=== PATIENT | male | born 2005 | race Caucasian/White ===

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

== ENCOUNTER 2023-01-01 07:41 | Outpatient (CLI) | payer MEDICAID, SELFPAY ==
--- NOTE | 2023-01-01 08:00 | MR_ITS ---
WS: [id number] MRI RIGHT ANKLE WITHOUT CONTRAST. COMPARISON: RIGHT ankle radiograph 12/26/2022 Multiplanar, multisequence imaging is performed without contrast. History: Painful mass lateral malleolus. There is a very subtle area of soft tissue thickening and a masslike configuration over the lateral m alleolus which corresponds to the palpable abnormality. This area of soft tissue thickening follows f at on all sequences. This is most consistent with a lipoma extending over a length of 1.8 cm. Transve rse diameter of 0.5 and anterior posterior by 1.3 cm. Normal marrow signal. No fractures. No osteochondral lesions. The joint space is well-maintained. Nor mal Achilles tendon. Normal peroneal tendons. Flexor and extensor tendons are normal. IMPRESSION: 1. Soft tissue mass following fat on all sequences over the lateral malleolus. Corresponds to the pal pable abnormality. Most consistent with a lipoma measuring 0.5 x 1.3 x 1.8 cm. 2. No marrow abnormality.
== END 2023-01-01 07:42 | disposition home or self-care (01) ==
LOC: RAD 07:41
PROVIDERS: Family Provider Family Medicine; PCP Family Medicine; Visit Provider Podiatrist Foot & Ankle Surgery
DX: M79.89 Other specified soft tissue disorders (principal); R22.41 Localized swelling, mass and lump, right lower limb; M25.571 Pain in right ankle and joints of right foot
CPT/HCPCS: 73721

== ENCOUNTER → 2023-01-30 13:54 | Outpatient (BNVA) | payer MEDICAID, SELFPAY | PROVIDERS: Family Provider Family Medicine; PCP Family Medicine; Visit Provider Podiatrist Foot & Ankle Surgery | DX: M79.89 Other specified soft tissue disorders (principal) | CPT/HCPCS: 99213 ==

== ENCOUNTER 2023-10-16 18:03 | Inpatient (IN) | payer SELFPAY ==
[2023-10-16 18:08] VITALS: BP 127/82; PULSE 123; RESP 18; TEMP 36.6; O2SAT 96
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
[2023-10-16 19:14] LABS: Basophils # 0.1 10^3/uL (0.0-0.1); Basophils % 0.7 %; Eosinophils % 0.2 %; Hematocrit 43.2 % (37-53); Lymphocytes # 1.6 10^3/uL (1.5-6.5); Lymphocytes % 13.6 %; Mean Corpuscular HGB Conc 36.3 g/dL (30-55); Mean Corpuscular Hemoglobin 31.5 pg (27-33); Mean Corpuscular Volume 86.6 fl (82-101); Monocytes # 0.7 10^3/uL (0.2-0.9); Monocytes % 5.7 %; Neutrophils # 9.28 10^3/uL (1.8-8.0); Neutrophils % 79.5 %; Nucleated Red Blood Cells % 0 %; Platelet Count 276 10^3/cmm (157-399); Red Blood Count 4.99 10^6/uL (3.85-5.65); Red Cell Distribution Width 11.9 % (12.1-15.1); White Blood Count 11.66 10^3/uL (4.5-13.0)
[2023-10-16 19:25] LABS: Amphetamines Screen Urine Positive (Negative); Barbiturates Screen Urine Negative (Negative); Benzodiazepines Screen Urine Positive (Negative); Cocaine Screen Urine Negative (Negative); Opiate Screen Urine Negative (Negative); PCP Screen Urine Negative (Negative); THC Screen Urine Negative (Negative)
[2023-10-16 19:32] LABS: Alanine Aminotransferase 16 U/L (0-41); Alkaline Phosphatase 89 U/L (40-130); Anion Gap 17.4 (5-19); Aspartate Amino Transferase 23 U/L (0-40); Blood Urea Nitrogen 17 mg/dL (6-20); Calcium 9.9 mg/dL (8.5-10.5); Carbon Dioxide 24 mmol/L (22-29); Chloride 102 mmol/L (98-107); Globulin 2.6 g/dL (1.3-4.6); Glomerular Filtration Rate 124.5 mL/min (90-130); Glucose 107 mg/dL (65-115); Osmolality Calculated 292 mOsm/kg (285-295); Potassium 3.4 mmol/L (3.5-5.1); Sodium 140 mmol/L (136-145); Total Bilirubin 2.5 mg/dL (0.15-1.2); Total Protein 7.6 g/dL (6.6-8.7)
[2023-10-16 19:33] LABS: Acetaminophen < 5.0 ug/mL (10-30); Alcohol Level < 10 mg/dL (0-10); Salicylate < 0.3 mg/dL (3-10)
[2023-10-16 20:20] VITALS: BP 118/60; PULSE 105; RESP 15; O2SAT 97
--- NOTE | 2023-10-16 20:38 | PC.NURSE ---
report called to Sridhar at 2037. NPU.
[2023-10-16 21:15] VITALS: BP 125/83; PULSE 102; RESP 18; TEMP 36.3; O2SAT 95
[2023-10-16 21:29] VITALS: BP 125/83; PULSE 102; RESP 18; TEMP 36.3
[2023-10-16] MEDS: trazodone 100 mg Tablet PO (23:14)
[2023-10-17] MEDS: acetaminophen 325 mg Tablet 650 MG PO (04:09)
[2023-10-17 06:00] VITALS: BP 126/81; PULSE 83; RESP 18; O2SAT 100
[2023-10-17] MEDS: LORazepam 0.5 mg Tablet PO ×2 (09:35→17:37)
[2023-10-17] MEDS: [UNRECOGNIZED DRUG - OTHER] PO (10:37)
[2023-10-17] MEDS: AMPHET PO ×2 (10:37→13:30)
[2023-10-17] MEDS: [UNRECOGNIZED DRUG - OTHER] PO (13:30)
[2023-10-17 14:00] VITALS: BP 115/67; PULSE 93; RESP 16; TEMP 37; O2SAT 98
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
[2023-10-17 19:15] VITALS: BP 122/84; PULSE 95; RESP 18; TEMP 36.3; O2SAT 100
[2023-10-17] MEDS: trazodone 100 mg Tablet PO (20:01)
[2023-10-17] MEDS: ARIPiprazole 10 mg Tablet 20 MG PO (20:01)
[2023-10-17] MEDS: ibuprofen 600 mg Tablet PO (23:14)
[2023-10-18 06:00] VITALS: BP 127/78; PULSE 67; RESP 18; TEMP 36.6; O2SAT 100
[2023-10-18] MEDS: LORazepam 0.5 mg Tablet PO ×2 (08:13→20:14)
[2023-10-18] MEDS: [UNRECOGNIZED DRUG - OTHER] PO (09:29)
[2023-10-18] MEDS: AMPHET PO ×2 (09:29→13:17)
--- NOTE | 2023-10-18 13:02 | PC.NURSE ---
Spoke with Mom to update her with med change for sleep at Bedtime. Dr. Feliz ordered 50mg Seroquel at Bedtime along with the 100mg of trazodone.
[2023-10-18] MEDS: [UNRECOGNIZED DRUG - OTHER] PO (13:17)
[2023-10-18 13:20] VITALS: BP 137/81; PULSE 109; RESP 16; TEMP 37.3; O2SAT 98
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
[2023-10-18] MEDS: ARIPiprazole 10 mg Tablet 20 MG PO (20:14)
[2023-10-18] MEDS: quetiapine 25 mg Tablet 50 MG PO (20:15)
[2023-10-18] MEDS: trazodone 100 mg Tablet PO (20:15)
[2023-10-18 20:45] VITALS: BP 115/82; PULSE 99; RESP 16; TEMP 37.4; O2SAT 98
[2023-10-19 06:00] VITALS: BP 114/76; PULSE 100; RESP 18; TEMP 36.6; O2SAT 98
[2023-10-19] MEDS: LORazepam 0.5 mg Tablet PO ×2 (08:07→20:26)
--- NOTE | 2023-10-19 08:14 | PC.NURSE ---
Patient states that he is feeling happy today. Patient denies SI, HI, AVH, depression, and anxiety. Patient voices nervousness at this time. Denies any needs.
[2023-10-19] MEDS: [UNRECOGNIZED DRUG - OTHER] PO (10:11)
[2023-10-19] MEDS: AMPHET PO ×2 (10:11→13:19)
[2023-10-19] MEDS: [UNRECOGNIZED DRUG - OTHER] PO (13:19)
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
[2023-10-19 14:00] VITALS: BP 126/81; PULSE 162; RESP 16; TEMP 36.6; O2SAT 96
--- NOTE | 2023-10-19 18:27 | PC.NURSE ---
Patient's room searched for contraband by staff. Nothing uncovered. patient cooperative with search
[2023-10-19] MEDS: ARIPiprazole 10 mg Tablet 20 MG PO (20:25)
[2023-10-19] MEDS: trazodone 100 mg Tablet PO (20:25)
[2023-10-19] MEDS: quetiapine 25 mg Tablet 50 MG PO (20:26)
[2023-10-19 20:56] VITALS: BP 125/87; PULSE 109; RESP 18; TEMP 36.9; O2SAT 100
[2023-10-20 06:00] VITALS: BP 109/67; PULSE 120; RESP 17; TEMP 36.7; O2SAT 98
[2023-10-20] MEDS: LORazepam 0.5 mg Tablet PO ×2 (08:18→20:35)
[2023-10-20] MEDS: [UNRECOGNIZED DRUG - OTHER] PO (08:19)
[2023-10-20] MEDS: AMPHET PO ×2 (08:19→13:03)
[2023-10-20] MEDS: [UNRECOGNIZED DRUG - OTHER] PO (13:03)
[2023-10-20 13:46] VITALS: BP 118/69; PULSE 105; RESP 16; TEMP 36.4; O2SAT 99
[2023-10-20] MEDS: hyDROXYzine 25 mg Capsule 50 MG PO (16:39)
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
[2023-10-20] MEDS: trazodone 100 mg Tablet PO (20:35)
[2023-10-20] MEDS: ARIPiprazole 10 mg Tablet 20 MG PO (20:35)
[2023-10-20] MEDS: quetiapine 25 mg Tablet 50 MG PO (20:35)
[2023-10-20 20:36] VITALS: BP 114/71; PULSE 96; RESP 18; TEMP 36.8; O2SAT 97
[2023-10-21 06:00] VITALS: BP 108/68; PULSE 109; RESP 18; TEMP 36.3; O2SAT 99
[2023-10-21] MEDS: LORazepam 0.5 mg Tablet PO ×2 (08:36→20:09)
[2023-10-21] MEDS: diphenhydrAMINE cream 30 gm 1 APPLIC TOPICAL (08:36)
[2023-10-21] MEDS: AMPHET PO ×2 (09:07→12:51)
[2023-10-21] MEDS: [UNRECOGNIZED DRUG - OTHER] PO (09:07)
[2023-10-21] MEDS: [UNRECOGNIZED DRUG - OTHER] PO (12:51)
[2023-10-21 13:09] VITALS: BP 113/77; PULSE 110; RESP 16; TEMP 36.6; O2SAT 98
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
[2023-10-21] MEDS: OLANZapine 5 mg ODT PO (15:42)
[2023-10-21] MEDS: ARIPiprazole 10 mg Tablet 20 MG PO (20:08)
[2023-10-21] MEDS: quetiapine 25 mg Tablet 50 MG PO (20:09)
[2023-10-21] MEDS: trazodone 100 mg Tablet PO (20:09)
[2023-10-21 20:28] VITALS: BP 113/72; PULSE 110; RESP 18; TEMP 37.2; O2SAT 97
[2023-10-22 06:00] VITALS: BP 99/66; PULSE 106; RESP 17; TEMP 36.9; O2SAT 96
[2023-10-22] MEDS: LORazepam 0.5 mg Tablet PO (08:52)
[2023-10-22] MEDS: OLANZapine 5 mg ODT PO (12:44)
[2023-10-22] MEDS: nicotine 2 mg Gum BUCCAL (13:00)
[2023-10-22 13:42] VITALS: BP 126/81; PULSE 118; RESP 16; TEMP 36.6; O2SAT 98
--- NOTE | 2023-10-22 13:59 | W.PM.NPUDCS ---
Diagnoses at Discharge Discharge Diagnosis (1) Outbursts of anger: Status: Acute (2) Moderate intellectual disability: Status: Acute (3) ADHD: Status: Acute Reason for Visit Reason for Visit: MHE Involuntary Hold Information 96 Hour Hold: 96 Hour Involuntary Admission: No Mental Status Exam MSE Comments: This is a short underweight white male in hospital scrubs with limited grooming and adequate eye contact. Abnormal facies noted. No abnormal movements except for mild psychomotor retardation. Cooperative with exam in no acute distress. Speech was limited and normal rate and volume and childlike. Mood described as okay, affect was congruent and childlike. Thought process appeared linear. Thought content: Patient denied suicidal or homicidal ideation, he did not report delusions and none were noted, he did not report auditory or visual hallucinations. His attention and concentration were limited and memory was unreliable but none were formally tested. He is alert and oriented to person and place. He was unclear of the month or season. Insight and judgment are impaired impulse impulse impaired. Intellectual ability is impaired. Discharge Data Studies Completed and Pending: Laboratory Results WBC 11.66 10^3/uL (4. 5-13.0) 10/16/23 18:57 RBC 4.99 10^6/uL (3.8 5-5.65) 10/16/23 18:57 Hgb 15.70 g/dL (13.2- 15.6) H 10/16/23 18:57 Hct 43.2 % (37-53) 10/16/23 18:57 MCV 86.6 fl (82-101) 10/16/23 18:57 MCH 31.5 pg (27-33) 10/16/23 18:57 MCHC 36.3 g/dL (30-55) 10/16/23 18:57 RDW 11.9 % (12.1-15.1 ) L 10/16/23 18:57 Plt Count 276 10^3/cmm (157 -399) 10/16/23 18:57 MPV 11.0 fL (7.4-10.4 ) H 10/16/23 18:57 Neut % (Auto) 79.5 % 10/16/23 18:57 Lymph % (Auto) 13.6 % 10/16/23 18:57 [place] % (Auto) 5.7 % 10/16/23 18:57 Eos % (Auto) 0.2 % 10/16/23 18:57 Baso % (Auto) 0.7 % 10/16/23 18:57 Neut # (Auto) 9.28 10^3/uL (1.8 -8.0) H 10/16/23 18:57 Lymph # (Auto) 1.6 10^3/uL (1.5- 6.5) 10/16/23 18:57 [place] # (Auto) 0.7 10^3/uL (0.2- 0.9) 10/16/23 18:57 Eos # (Auto) 0.0 10^3/uL (0.0- 0.8) 10/16/23 18:57 Baso # (Auto) 0.1 10^3/uL (0.0- 0.1) 10/16/23 18:57 Nucleated RBC % (a uto) 0 % 10/16/23 18:57 Nucleated RBCs # 0.0 /100WBC 10/16/23 18:57 Sodium 140 mmol/L (136-1 45) 10/16/23 18:57 Potassium 3.4 mmol/L (3.5-5 .1) L 10/16/23 18:57 Chloride 102 mmol/L (98-10 7) 10/16/23 18:57 Carbon Dioxide 24 mmol/L (22-29) 10/16/23 18:57 Anion Gap 17.4 (5-19) 10/16/23 18:57 BUN 17 mg/dL (6-20) 10/16/23 18:57 Creatinine 0.8 mg/dL (0.7-1. 2) 10/16/23 18:57 GFR Calculation 124.5 mL/min (90- 130) 10/16/23 18:57 Glucose 107 mg/dL (65-115 ) 10/16/23 18:57 Calculated Osmolal ity 292 mOsm/kg (285- 295) 10/16/23 18:57 Calcium 9.9 mg/dL (8.5-10 .5) 10/16/23 18:57 Total Bilirubin 2.5 mg/dL (0.15-1 .2) H 10/16/23 18:57 AST 23 U/L (0-40) 10/16/23 18:57 ALT 16 U/L (0-41) 10/16/23 18:57 Alkaline Phosphata se 89 U/L (40-130) 10/16/23 18:57 Total Protein 7.6 g/dL (6.6-8.7 ) 10/16/23 18:57 Albumin 5.0 g/dL (3.5-5.2 ) 10/16/23 18:57 Globulin 2.6 g/dL (1.3-4.6 ) 10/16/23 18:57 Salicylates < 0.3 mg/dL (3-10 ) L 10/16/23 18:57 Urine Opiates Scre en Negative ng/mL (N egative) 10/16/23 18:09 Acetaminophen < 5.0 ug/mL (10-3 0) L 10/16/23 18:57 Ur Barbiturates Sc reen Negative ng/mL (N egative) 10/16/23 18:09 Ur Phencyclidine S crn Negative ng/mL (N egative) 10/16/23 18:09 Ur Amphetamines Sc reen Positive ng/mL (N egative) H 10/16/23 18:09 U Benzodiazepines Scrn Positive ng/mL (N egative) H 10/16/23 18:09 Urine Cocaine Scre en Negative ng/mL (N egative) 10/16/23 18:09 U Marijuana (THC) Screen Negative ng/mL (N egative) 10/16/23 18:09 Ethyl Alcohol < 10 mg/dL (0-10) 10/16/23 18:57 Vitals: Last Vital Signs Temp 98 F 10/22/23 13:42 Pulse 118 H 10/22/23 13:42 Resp 16 10/22/23 13:42 BP 126/81 10/22/23 13:42 Pulse Ox 98 10/22/23 13:42 O2 Del Method Room Air 10/22/23 13:42 Discharge Plan Discharge Patient Disposition: Home Condition: Stable Prescriptions: New quetiapine 100 mg tablet 100 mg PO BEDTIME 30 Days Qty: 30 1RF Rx Instructions: Take 1/2-1 tab at bedtime as needed Continued aripiprazole [Abilify] 20 mg tablet 20 mg PO DAILY trazodone 100 mg tablet 100 mg PO DAILY Ativan 0.5 mg tablet 0.5 mg PO BID Adderall 5 mg tablet 5 mg PO DIRECTED Rx Instructions: TAKE ONE TO TWO TABLETS BY MOUTH DAILY AFTER LUNCH. Adderall XR 15 mg capsule,extended release 24hr 15 cap PO DAILY Rx Instructions: TAKE ONE CAPSULE BY MOUTH DAILY in THE morning. Max daily AMOUNT 15 MG. Discharge Orders: Discharge Order (Routine); Ordered 10/22/23 Ordered By: Dex Feliz Referrals: [facility] [Outside] - 10/26/23 9:30 am (Initial assessment for services with [facility]) Estelle Bobby DO [Primary Care Provider] - Discharge Diet: Regular Discharge Activity: Resume usual activity Patient Instructions: Opioid Safety Discharge Attestations NPU Time Spent in Discharge Care*: less than 30 min Specific Discharge Activities: Specific discharge activities: educating patient, discussing with case supervisor/social workers/dc planners, documenting/other paperwork and evaluating patient/reviewing data Coding Level of Care Code Acute Code for Chg Fwd Diagnoses Outbursts of anger R45.4 Moderate intellectual disability F71 ADHD F90.9
[2023-10-22 15:00] VITALS: BP 126/81; PULSE 118; RESP 16; TEMP 36.6; O2SAT 98
== END 2023-10-22 18:28 | disposition home or self-care (01) | DRG 886 ==
LOC: ER 19:36 → NP 19:43
PROVIDERS: Admitting Provider Psychiatry & Neurology Psychiatry; Emergency Provider Emergency Medicine; PCP Family Medicine; Visit Provider Psychiatry & Neurology Psychiatry
DX: F90.9 Attention-deficit hyperactivity disorder, unspecified type (principal); R45.4 Irritability and anger; F41.9 Anxiety disorder, unspecified; F71 Moderate intellectual disabilities
CPT/HCPCS: 36415; 80053; 80306; 80307; 85025; 97150; 97165; 99285

== ENCOUNTER 2024-07-02 21:22 | Inpatient (IN) | payer SELFPAY ==
[2024-07-02 21:22] VITALS: BP 125/82; PULSE 98; RESP 18; TEMP 37.4; O2SAT 97; BMI 19.3
--- NOTE | 2024-07-02 21:25 | ECG_ITS ---
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 Measurements Intervals [place] Rate: 101 P: 82 MT: 157 QRS: 93 QRSD: 116 T: 66 QT: 331 QTc: 429 Interpretive Statements SINUS TACHYCARDIA POSSIBLE RIGHT ATRIAL ENLARGEMENT [0.25mV P-WAVE] LEFT ATRIAL ENLARGEMENT [-0.15mV P-WAVE IN V1/V2] BORDERLINE RIGHT AXIS DEVIATION [QRS AXIS > 90] POSSIBLE RIGHT VENTRICULAR CONDUCTION DELAY [RSR (QR) IN V1/V2] ST ELEVATION CONSISTENT WITH INJURY, PERICARDITIS, OR EARLY REPOLARIZATION [ST ELEVATION W/O NORMALLY INFLECTED T-WAVE] NONSPECIFIC ST & T-WAVE ABNORMALITY Compared to ECG 04/26/2016 11:26:32 Atrial abnormality now present T-wave abnormality now present Sinus arrhythmia no longer present Electronically Signed On 07-07-2024 09:30:58 CDT by Anderson Kahn M.D. [email or web address]
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
[2024-07-02 21:36] VITALS: BP 125/82; PULSE 97; RESP 16; O2SAT 98
[2024-07-02 21:44] LABS: Basophils # 0.1 10^3/uL (0.0-0.1); Basophils % 1.3 %; Eosinophils # 0.1 10^3/uL (0.0-0.8); Eosinophils % 1.3 %; Hematocrit 45.3 % (37-53); Lymphocytes # 2.3 10^3/uL (1.5-6.5); Mean Corpuscular HGB Conc 34.9 g/dL (30-55); Mean Corpuscular Hemoglobin 30.9 pg (27-33); Mean Corpuscular Volume 88.5 fl (82-101); Mean Platelet Volume 10.5 fL (7.4-10.4); Monocytes # 0.6 10^3/uL (0.2-0.9); Monocytes % 7.2 %; Neutrophils # 4.79 10^3/uL (1.8-8.0); Neutrophils % 60.7 %; Nucleated Red Blood Cells % 0 %; Platelet Count 246 10^3/cmm (157-399); Red Blood Count 5.12 10^6/uL (3.85-5.65); Red Cell Distribution Width 12.5 % (12.1-15.1); White Blood Count 7.89 10^3/uL (4.5-13.0)
[2024-07-02 21:48] LABS: Bilirubin Urine Negative (Negative); Blood Urine Negative (Negative); Glucose Urine UA Negative (Normal); Ketones Urine 1+ (Negative); Leukocyte Esterase Urine Negative (Negative); Nitrate Urine Negative (Negative); Protein Urine Negative (Negative); Specific Gravity, Urine 1.017 (1.005-1.030); Urine Appearance Clear (CLEAR); Urine Color Yellow (Yellow); pH Urine 6.5 (5-7)
[2024-07-02 21:54] LABS: Add Urine Microscopic? YES; Bacteria Urine None Seen /hpf; Hyaline Casts Urine 1.65 /lpf; RBC Urine 0-2 /hpf (0-2); Squamous Epithelial Cell Urine 0-5 /hpf (0-5); WBC Urine 0-5 /hpf (0-5)
[2024-07-02 21:55] LABS: Amphetamines Screen Urine Negative (Negative); Barbiturates Screen Urine Negative (Negative); Benzodiazepines Screen Urine Positive (Negative); Cocaine Screen Urine Negative (Negative); Opiate Screen Urine Negative (Negative); PCP Screen Urine Negative (Negative); THC Screen Urine Negative (Negative)
[2024-07-02 22:11] LABS: Alanine Aminotransferase 14 U/L (0-41); Albumin Level 4.8 g/dL (3.5-5.2); Alkaline Phosphatase 94 U/L (40-130); Anion Gap 15.5 (5-19); Aspartate Amino Transferase 18 U/L (0-40); Blood Urea Nitrogen 18 mg/dL (6-20); Calcium 9.9 mg/dL (8.5-10.5); Carbon Dioxide 27 mmol/L (22-29); Chloride 102 mmol/L (98-107); Creatinine Clr Calc Pharmacy 142.9819; Globulin 3.4 g/dL (1.3-4.6); Glomerular Filtration Rate 143.8 mL/min (90-130); Glucose 96 mg/dL (65-115); Osmolality Calculated 294 mOsm/kg (285-295); Potassium 3.5 mmol/L (3.5-5.1); Sodium 141 mmol/L (136-145); Thyroid Stimulating Hormone 3.74 uIU/mL (0.27-4.20); Total Bilirubin 1.6 mg/dL (0.15-1.2); Total Protein 8.2 g/dL (6.6-8.7)
[2024-07-02 22:18] LABS: Acetaminophen < 5.0 ug/mL (10-30); Alcohol Level < 10 mg/dL (0-10); Salicylate < 0.3 mg/dL (3-10)
[2024-07-02 22:35] VITALS: BP 119/85; PULSE 103; RESP 14; O2SAT 95
--- NOTE | 2024-07-02 22:37 | PC.NURSE ---
96 Hour Involuntary Hold Patient Rights have been reviewed with patient and guardian and a copy of the same has been provided to him. Lead Architect Angelo was present at bedside at the time of presentation of Rights.
[2024-07-02 22:38] VITALS: BP 119/85; PULSE 103; RESP 14; O2SAT 95
[2024-07-02 22:51] VITALS: BP 122/83; PULSE 98; RESP 22; TEMP 37.3; O2SAT 98
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
[2024-07-03] MEDS: hyDROXYzine 25 mg Capsule 50 MG PO ×2 (04:18→21:35)
[2024-07-03 06:00] VITALS: BP 129/93; PULSE 81; RESP 17; TEMP 36.5; O2SAT 99
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
[2024-07-03] MEDS: OLANZapine 5 mg ODT PO (08:23)
--- NOTE | 2024-07-03 09:40 | PC.NURSE ---
UP AT NURSES STATION, INTRUSIVE AT TIMES. SPEECH IS GARBLED. PT IS NOTED TO HAVE SOME INTELLECTUAL IMPAIRMENTS. PT WAS GIVEN ZYDIS 5 MG ORDERED FOR INCREASED ANXIETY. EVASIVE WITH ASSESSMENT. DENIES PAIN. DENIES SI*/HI AND AVH AT THIS TIME. DEPRESSED MOOD NOTED. SUPPORT VOICED.
[2024-07-03 14:00] VITALS: BP 126/86; PULSE 89; RESP 17; TEMP 36.9; O2SAT 96
--- NOTE | 2024-07-03 16:17 | PC.NURSE ---
SPOKE WITH PTS MOTHER TO VERIFY MEDICATIONS. MEDICATIONS RECONCILED. NEW ORDERS RECEIVED FROM DR. CORBETT TO START PTS HOME MEDICATIONS FOLLOWS: CLONIDINE 01.MG PO BID PRN ANXIETY AND BEHAVIORS, SEROQUEL 100 MG PO Q HS, TRAZODONE 150MG PO Q HS, ATIVAN 0.5 MG PO BID PRN AGITATION AND ANXIETY, ABILIFY WAS AT 20 MG BUT INCREASED TO 30 MG PO Q HS. EDUCATED PT ON NEW ORDERS. SUPPORT VOICED. PT STATES HE TAKES ALL HIS MEDICATIONS AT NIGHT.
[2024-07-03 20:22] VITALS: BP 133/93; PULSE 104; RESP 17; O2SAT 96
[2024-07-03] MEDS: quetiapine 100 mg Tablet PO (21:35)
[2024-07-04 06:00] VITALS: BP 120/84; PULSE 79; RESP 17; TEMP 36.4; O2SAT 98
--- NOTE | 2024-07-04 08:41 | PC.NURSE ---
AT NURSES STATION MULTIPLE TIMES THIS MORNING, PT IS NOTED TO BE INTRUSIVE WITH STAFF AND WORRIES IF HIS VITALS HAVE BEEN TAKEN ON TIME. PT IS ASSURED HIS VITALS ARE TAKEN WHEN THE DR HAS ORDERED AND HIS VITALS ARE GREAT. PT IS NOTED TO HAVE CHILD LIKE BEHAVIORS DUE TO INTELLECTUAL FUNCTIONING TO BE LOW. SPEECH IS MUMBLED. DENIES SI/HI AND AVH AT THIS TIME. DENIES PAIN. SUPPORT VOICED.
[2024-07-04] MEDS: blistex lip oint 7 gm Tube 1 APPLIC TOPICAL (09:38)
[2024-07-04] MEDS: hyDROXYzine 25 mg Capsule 50 MG PO ×2 (10:50→23:27)
[2024-07-04] MEDS: benztropine 1 mg Tablet PO ×2 (11:37→22:40)
[2024-07-04 14:00] VITALS: BP 115/83; PULSE 73; RESP 18; TEMP 36.9; O2SAT 98
[2024-07-04] MEDS: hydrocortisone 2.5% cream 28 gm 1 APPLIC TOPICAL (15:09)
--- NOTE | 2024-07-04 15:58 | PC.NURSE ---
Cogentin 1mg administered for involuntary facial movements. Dr. Feliz notified.
--- NOTE | 2024-07-04 15:59 | PC.NURSE ---
Patient continues to experience involuntary facial movements. This nurse called Dr. Feliz who gave verbal for 50mg Benadryl IM and ativan 1mg PO. Verbal to hold PRN haldol 5mg PO and PRN zyprexa 5mg PO due to effects of antipsychotics on patient.
[2024-07-04] MEDS: LORazepam 1 mg Tablet PO (16:04)
[2024-07-04] MEDS: diphenhydrAMINE 50 mg/mL SDV 1mL IM ×2 (16:04→23:27)
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
--- NOTE | 2024-07-04 17:27 | PC.NURSE ---
Follow-up Patient states that his mouth feels better . Still some movements visualized.
--- NOTE | 2024-07-04 18:22 | PC.NURSE ---
Verbal order from Dr. Feliz to increase seroquel from 100mg to 150mg at bedtime.
[2024-07-04 20:32] VITALS: BP 139/90; PULSE 100; RESP 18; TEMP 37.1; O2SAT 95
[2024-07-04] MEDS: trazodone 100 mg Tablet 150 MG PO (20:40)
[2024-07-04] MEDS: quetiapine 100 mg Tablet 150 MG PO (20:43)
[2024-07-04] MEDS: ARIPiprazole 30 mg Tablet PO (20:43)
[2024-07-04] MEDS: trazodone 50 mg Tablet PO (23:27)
[2024-07-05] MEDS: trazodone 50 mg Tablet PO (01:49)
[2024-07-05] MEDS: LORazepam 0.5 mg Tablet PO (01:49)
[2024-07-05 06:00] VITALS: BP 123/95; PULSE 97; RESP 18; TEMP 36.4; O2SAT 96
[2024-07-05] MEDS: benztropine 1 mg Tablet PO (08:37)
[2024-07-05 14:00] VITALS: BP 124/74; PULSE 64; RESP 16; TEMP 36.6; O2SAT 98
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
[2024-07-05] MEDS: benztropine 1 mg Tablet 2 MG PO (17:52)
[2024-07-05] MEDS: hyDROXYzine 25 mg Capsule 50 MG PO (20:21)
[2024-07-05] MEDS: ARIPiprazole 30 mg Tablet PO (20:21)
[2024-07-05] MEDS: trazodone 100 mg Tablet 150 MG PO (20:21)
[2024-07-05] MEDS: quetiapine 100 mg Tablet 150 MG PO (20:22)
[2024-07-05] MEDS: zolpidem 5 mg Tablet PO (20:23)
[2024-07-05 22:00] VITALS: BP 116/75; PULSE 75; RESP 18; TEMP 37.2; O2SAT 98
--- NOTE | 2024-07-05 22:27 | PC.NURSE ---
PATIENT GIVEN VISTARIL 50MG FOR ANXIETY PER PATIENT REQUEST.
[2024-07-06 06:00] VITALS: BP 109/80; PULSE 130; RESP 18; TEMP 36.7; O2SAT 97; BMI 20.3
[2024-07-06] MEDS: benztropine 1 mg Tablet 2 MG PO ×2 (09:02→18:01)
[2024-07-06 14:00] VITALS: BP 116/76; PULSE 110; RESP 16; O2SAT 98
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
[2024-07-06] MEDS: trazodone 100 mg Tablet 150 MG PO (20:19)
[2024-07-06] MEDS: ARIPiprazole 30 mg Tablet PO (20:19)
[2024-07-06] MEDS: zolpidem 5 mg Tablet PO (20:20)
[2024-07-06 21:58] VITALS: BP 127/85; PULSE 106; RESP 18; TEMP 36.8; O2SAT 99
[2024-07-07 06:00] VITALS: BP 96/60; PULSE 111; RESP 18; TEMP 36.9; O2SAT 96
[2024-07-07] MEDS: benztropine 1 mg Tablet 2 MG PO ×2 (08:19→17:04)
[2024-07-07] MEDS: ibuprofen 600 mg Tablet PO (09:15)
[2024-07-07] MEDS: benztropine 1 mg Tablet PO (11:28)
[2024-07-07 13:59] VITALS: BP 125/88; PULSE 95; RESP 16; TEMP 36.4; O2SAT 98
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
[2024-07-07] MEDS: CLONazepam 0.5 mg Tablet 0.25 MG PO (17:04)
[2024-07-07] MEDS: trazodone 100 mg Tablet 150 MG PO (19:14)
[2024-07-07] MEDS: ARIPiprazole 10 mg Tablet 20 MG PO (19:16)
[2024-07-07] MEDS: zolpidem 5 mg Tablet PO (19:16)
[2024-07-07] MEDS: hyDROXYzine 25 mg Capsule 50 MG PO (19:16)
[2024-07-07 19:17] VITALS: BP 125/80; PULSE 95; RESP 16; TEMP 36.8; O2SAT 98
[2024-07-08 04:17] VITALS: BP 122/86; PULSE 106; RESP 20; TEMP 36.7; O2SAT 93
[2024-07-08] MEDS: CLONazepam 0.5 mg Tablet 0.25 MG PO ×2 (08:24→17:13)
[2024-07-08] MEDS: benztropine 1 mg Tablet 2 MG PO ×2 (08:24→17:12)
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
[2024-07-08 14:00] VITALS: BP 118/78; PULSE 87; RESP 16; TEMP 36.3; O2SAT 100
[2024-07-08 17:13] VITALS: BP 118/78
[2024-07-08] MEDS: cloNIDine 0.1 mg Tablet PO (17:13)
[2024-07-08 20:04] VITALS: BP 118/74; PULSE 104; RESP 22; TEMP 36.6; O2SAT 96
[2024-07-08] MEDS: hyDROXYzine 25 mg Capsule 50 MG PO (20:33)
[2024-07-08] MEDS: trazodone 100 mg Tablet 150 MG PO (20:33)
[2024-07-08] MEDS: ARIPiprazole 10 mg Tablet 20 MG PO (20:33)
[2024-07-08] MEDS: zolpidem 5 mg Tablet PO (20:34)
[2024-07-08] MEDS: trazodone 50 mg Tablet PO (20:34)
[2024-07-09] MEDS: blistex lip oint 7 gm Tube 1 APPLIC TOPICAL (01:53)
[2024-07-09] MEDS: hyDROXYzine 25 mg Capsule 50 MG PO (02:01)
[2024-07-09 06:00] VITALS: BP 126/78; PULSE 118; RESP 22; TEMP 36.2; O2SAT 98
[2024-07-09] MEDS: CLONazepam 0.5 mg Tablet 0.25 MG PO ×2 (10:43→18:27)
[2024-07-09] MEDS: benztropine 1 mg Tablet 2 MG PO ×2 (10:43→18:27)
[2024-07-09 10:44] VITALS: BP 126/78
[2024-07-09] MEDS: cloNIDine 0.1 mg Tablet PO ×2 (10:44→18:28)
[2024-07-09 14:00] VITALS: BP 99/63; PULSE 107; TEMP 36.4; O2SAT 97
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
[2024-07-09 18:28] VITALS: BP 99/63
[2024-07-09] MEDS: diphenhydrAMINE 50 mg Capsule PO (20:37)
[2024-07-09] MEDS: trazodone 100 mg Tablet 150 MG PO (20:37)
[2024-07-09] MEDS: ARIPiprazole 10 mg Tablet 20 MG PO (20:37)
[2024-07-09 22:00] VITALS: BP 117/61; PULSE 104; RESP 18; TEMP 36.4; O2SAT 98
[2024-07-10 06:00] VITALS: BP 114/74; PULSE 110; RESP 18; TEMP 36.3; O2SAT 97
[2024-07-10] MEDS: CLONazepam 0.5 mg Tablet 0.25 MG PO ×2 (09:08→18:18)
[2024-07-10] MEDS: benztropine 1 mg Tablet 2 MG PO ×2 (09:09→18:18)
[2024-07-10 09:27] VITALS: BP 114/74
[2024-07-10] MEDS: cloNIDine 0.1 mg Tablet PO ×2 (09:27→18:19)
[2024-07-10 14:00] VITALS: BP 96/58; PULSE 99; RESP 16; TEMP 36.6; O2SAT 97
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
[2024-07-10 18:19] VITALS: BP 96/58
[2024-07-10 19:24] VITALS: BP 97/58; PULSE 116; RESP 18; TEMP 36.8; O2SAT 96
[2024-07-10] MEDS: trazodone 100 mg Tablet 150 MG PO (20:30)
[2024-07-10] MEDS: ARIPiprazole 10 mg Tablet 20 MG PO (20:31)
[2024-07-11 06:00] VITALS: BP 115/65; PULSE 86; RESP 17; TEMP 36.4; O2SAT 97
[2024-07-11 08:27] VITALS: BP 115/65
[2024-07-11] MEDS: CLONazepam 0.5 mg Tablet 0.25 MG PO (08:27)
[2024-07-11] MEDS: benztropine 1 mg Tablet 2 MG PO (08:27)
[2024-07-11] MEDS: cloNIDine 0.1 mg Tablet PO (08:27)
[2024-07-11 09:09] VITALS: BP 115/65; PULSE 86; RESP 17; TEMP 36.4; O2SAT 97
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
== END 2024-07-11 09:39 | disposition home or self-care (01) | DRG 886 ==
LOC: ER 21:59 → NP 22:29
PROVIDERS: Admitting Provider Psychiatry & Neurology Psychiatry; Emergency Provider Emergency Medicine; PCP Family Medicine; Visit Provider Psychiatry & Neurology Psychiatry
DX: F63.9 Impulse disorder, unspecified (principal); R45.4 Irritability and anger; F84.0 Autistic disorder; F90.9 Attention-deficit hyperactivity disorder, unspecified type; F79 Unspecified intellectual disabilities; J45.909 Unspecified asthma, uncomplicated
CPT/HCPCS: 36415; 80053; 80306; 80307; 81001; 84443; 85025; 93005; 96372; 97150; 97165; 99285; J1200; J9999; Q0163